=== PATIENT | female | born 1955 | race African-American/Black ===

== ENCOUNTER 2021-12-13 08:21 | Outpatient (CLI) | payer MEDICARE ==
[2021-12-13] MEDS ORDERED: Iopamidol 300 61% 100 ML VIAL FS ONE (09:14)
== END 2021-12-13 08:22 | disposition home or self-care (01) ==
LOC: CSHCT 08:21
PROVIDERS: ATTEND Internal Medicine
DX: R22.1 Localized swelling, mass and lump, neck (principal)
CPT/HCPCS: 70491; 82565

== ENCOUNTER 2022-05-17 16:34 | Outpatient (CLI) | payer MEDICARE | END 2022-05-17 16:35 | disposition home or self-care (01) | LOC: CSHRAD 16:34 | PROVIDERS: ATTEND Internal Medicine | DX: R51.9 Headache, unspecified (principal) | CPT/HCPCS: 72040 ==

== ENCOUNTER 2022-09-07 12:15 | Outpatient (CLI) | payer OTHER | END 2022-09-07 12:16 | disposition home or self-care (01) | LOC: CSHMAMMO 12:15 | PROVIDERS: ATTEND Internal Medicine | DX: Z12.31 Encounter for screening mammogram for malignant neoplasm of breast (principal); Z13.820 Encounter for screening for osteoporosis; M85.89 Other specified disorders of bone density and structure, multiple sites; Z78.0 Asymptomatic menopausal state; Z91.89 Other specified personal risk factors, not elsewhere classified | CPT/HCPCS: 77063; 77067; 77080 ==